=== PATIENT | male | born 1935 | race Caucasian/White ===

== ENCOUNTER 2020-03-09 16:19 | Inpatient (IN) | payer MEDICARE, MEDICAID ==
[~2020-03-09] VITALS: Ht 170.2 cm; Wt 95.7 kg
[2020-03-09 18:35] LABS: CHLORIDE 102 mEq/L (98-107)
[2020-03-09 18:40] LABS: HEMATOCRIT. 39.2 % (42.0-52.0); HEMOGLOBIN. 12.8 g/dL (14.0-18.0); MEAN CORPUSCULAR VOLUME 82.8 fL (80.0-94.0); MEAN PLATELET VOLUME 8.3 fl (7.4-10.4); PLATELET 113 x1000/uL (130-400); RED BLOOD CELL COUNT 4.74 mill/uL (4.7-6.1); RED CELL DISTRIBUTION WIDTH 18.5 % (11.6-14.6)
[2020-03-09 18:43] LABS: INR 1.3; PROTHROMBIN TIME 13.6 sec (9.6-11.0)
[2020-03-09 18:44] LABS: CLARITY URINE TURBID (CLEAR); COLOR URINE DK YELLOW (YELLOW); KETONES URINE TRACE (NEGATIVE); LEUKOCYTE ESTERASE URINE 3+ (NEGATIVE); NITRITE URINE NEGATIVE (NEGATIVE); OCCULT BLOOD URINE 3+ (NEGATIVE); PH URINE 5.5 (4.5-8.0); PROTEIN URINE 2+ (NEGATIVE); SPECIFIC GRAVITY URINE 1.028 (1.005-1.030)
[2020-03-09 19:07] LABS: PLATELET ESTIMATE DECREASED
[2020-03-09] MEDS ORDERED: PIPERACILLIN/TAZOBACTAM 3.375GM/50ML PREMIX IV NR (21:00)
[2020-03-09] MEDS ORDERED: ONDANSETRON HCL 4MG/2ML INJ IV PRN (23:00)
[2020-03-09] MEDS ORDERED: IPRATROPIUM/ALBUTEROL 0.5-3(2.5)MG/3ML NEB HHN PRN (23:00)
[2020-03-09] MEDS ORDERED: HYDROCODONE/ACETAMINOPHEN 5/325MG TABLET PO PRN (23:00)
[2020-03-09] MEDS ORDERED: ACETAMINOPHEN 325MG TABLET PO PRN (23:00)
[2020-03-09] MEDS ORDERED: VANCOMYCIN 1 G PREMIX 200 ML IV SCH (23:45)
[2020-03-09] MEDS: ACETAMINOPHEN 325MG TABLET PO PRN (23:58)
[2020-03-10 02:01] VITALS: BP 148/90
[2020-03-10] MEDS ORDERED: ASPI-1497 PO (02:15)
[2020-03-10] MEDS ORDERED: SITA1TAB6 PO (02:15)
[2020-03-10] MEDS ORDERED: DEXTROSE 50% WATER 50ML SYRINGE IV PRN (02:30)
[2020-03-10] MEDS: SODIUM CHLORIDE 0.45% 1,000 ML IV SCH ×2 (02:43→13:25)
[2020-03-10] MEDS: BLOOD SUGAR DIAGNOSTIC STRIP TEST SCH ×4 (03:11→21:00)
[2020-03-10 04:00] VITALS: BP 143/78
[2020-03-10 05:51] LABS: HEMATOCRIT. 38.4 % (42.0-52.0); HEMOGLOBIN. 12.4 g/dL (14.0-18.0); MEAN CORPUSCULAR HEMOGLOBIN 26.5 pg (28.0-32.0); MEAN CORPUSCULAR VOLUME 82.5 fL (80.0-94.0); MEAN PLATELET VOLUME 8.4 fl (7.4-10.4); PLATELET 111 x1000/uL (130-400); RED BLOOD CELL COUNT 4.66 mill/uL (4.7-6.1); RED CELL DISTRIBUTION WIDTH 18.6 % (11.6-14.6)
[2020-03-10 05:59] LABS: CHLORIDE 103 mEq/L (98-107)
[2020-03-10 06:10] LABS: LDL CHOLESTEROL 38 mg/dL (5-100)
[2020-03-10 06:12] LABS: CREATINE KINASE 128 IU/L (39-308); HDL CHOLESTEROL 31 mg/dL (40-59)
[2020-03-10 06:13] LABS: T4 FREE 1.19 ng/dL (0.76-1.46)
[2020-03-10] MEDS ORDERED: BLOOD SUGAR DIAGNOSTIC STRIP TEST SCH (06:45)
[2020-03-10] MEDS ORDERED: INSULIN LISPRO 100 UNITS/ML SUBCUT SCH (07:15)
[2020-03-10 08:00] VITALS: BP 160/74
[2020-03-10] MEDS: ENOXAPARIN 40MG/0.4ML SYR SUBCUT SCH (10:08)
[2020-03-10] MEDS: INSULIN LISPRO 100 UNITS/ML SUBCUT SCH ×2 (10:11→17:33)
[2020-03-10 12:00] VITALS: BP 140/68
[2020-03-10] MEDS: MEROPENEM 1,000 MG in SODIUM CHLORIDE 0.9% 100 ML IV SCH ×2 (15:40→22:20)
[2020-03-10 15:58] LABS: CREATINE KINASE 158 IU/L (39-308)
[2020-03-10 16:00] VITALS: BP 145/90
[2020-03-10 16:09] LABS: PLATELET ESTIMATE DECREASED
[2020-03-10] MEDS ORDERED: SODIUM CHLORIDE 0.9% 500 ML IV ONE (16:45)
[2020-03-10] MEDS ORDERED: GENTAMICIN 120MG PREMIX 100 ML IV NR (18:00)
[2020-03-10 20:00] VITALS: BP 110/68
[2020-03-10] MEDS: DILTIAZEM HCL 30MG TABLET PO SCH (22:20)
[2020-03-11] VITALS: BP 111/59
[2020-03-11] MEDS: SODIUM CHLORIDE 0.45% 1,000 ML IV SCH ×2 (02:03→16:21)
[2020-03-11 04:00] VITALS: BP 125/70
[2020-03-11] MEDS: DILTIAZEM HCL 30MG TABLET PO SCH ×3 (05:07→21:48)
[2020-03-11] MEDS: MEROPENEM 1,000 MG in SODIUM CHLORIDE 0.9% 100 ML IV SCH ×3 (05:07→21:42)
[2020-03-11] MEDS: BLOOD SUGAR DIAGNOSTIC STRIP TEST SCH ×4 (07:00→21:54)
[2020-03-11 08:00] VITALS: BP 137/86
[2020-03-11 08:42] LABS: HEMATOCRIT. 36.6 % (42.0-52.0); HEMOGLOBIN. 11.9 g/dL (14.0-18.0); MEAN CORPUSCULAR HEMOGLOBIN 26.8 pg (28.0-32.0); MEAN CORPUSCULAR VOLUME 82.2 fL (80.0-94.0); MEAN PLATELET VOLUME 8.1 fl (7.4-10.4); PLATELET 102 x1000/uL (130-400); RED BLOOD CELL COUNT 4.45 mill/uL (4.7-6.1); RED CELL DISTRIBUTION WIDTH 18.6 % (11.6-14.6)
[2020-03-11 08:52] LABS: CHLORIDE 106 mEq/L (98-107)
[2020-03-11] MEDS: ENOXAPARIN 40MG/0.4ML SYR SUBCUT SCH (08:58)
[2020-03-11] MEDS: INSULIN LISPRO 100 UNITS/ML SUBCUT SCH ×4 (08:58→21:54)
[2020-03-11 12:00] VITALS: BP 139/70
[2020-03-11 15:28] LABS: PLATELET ESTIMATE DECREASED
[2020-03-11 16:00] VITALS: BP 154/65
[2020-03-11] MEDS: ACETAMINOPHEN 325MG TABLET PO PRN (16:21)
[2020-03-11 20:00] VITALS: BP 136/64
[2020-03-12] VITALS: BP 144/68
[2020-03-12] MEDS ORDERED: VANCOMYCIN 1500MG in DEXTROSE 5% WATER 250ML IV NR (01:00)
[2020-03-12 04:00] VITALS: BP 105/83
[2020-03-12 06:17] LABS: CHLORIDE 102 mEq/L (98-107)
[2020-03-12 06:19] LABS: HEMATOCRIT. 33.2 % (42.0-52.0); HEMOGLOBIN. 11.1 g/dL (14.0-18.0); MEAN CORPUSCULAR HEMOGLOBIN 27.3 pg (28.0-32.0); MEAN CORPUSCULAR VOLUME 81.5 fL (80.0-94.0); MEAN PLATELET VOLUME 8.3 fl (7.4-10.4); PLATELET 96 x1000/uL (130-400); RED BLOOD CELL COUNT 4.07 mill/uL (4.7-6.1)
[2020-03-12] MEDS: INSULIN LISPRO 100 UNITS/ML SUBCUT SCH ×4 (06:23→22:22)
[2020-03-12] MEDS: BLOOD SUGAR DIAGNOSTIC STRIP TEST SCH ×4 (06:23→21:00)
[2020-03-12] MEDS: MEROPENEM 1,000 MG in SODIUM CHLORIDE 0.9% 100 ML IV SCH ×2 (06:28→13:11)
[2020-03-12] MEDS: DILTIAZEM HCL 30MG TABLET PO SCH ×3 (06:28→22:19)
[2020-03-12 08:00] VITALS: BP 144/71
[2020-03-12] MEDS: ACETAMINOPHEN 325MG TABLET PO PRN ×2 (08:33→22:15)
[2020-03-12] MEDS: ENOXAPARIN 40MG/0.4ML SYR SUBCUT SCH (08:33)
[2020-03-12] MEDS ORDERED: LIDOCAINE HCL 1% 20ML VIAL (Pyxis) INJ ONE (10:48)
[2020-03-12 12:00] VITALS: BP 150/78
[2020-03-12] MEDS: SODIUM CHLORIDE 0.45% 1,000 ML IV SCH (13:24)
[2020-03-12] MEDS ORDERED: AMIKACIN SULFATE 500 MG in SODIUM CHLORIDE 0.9% 100 ML IV NR (15:00)
[2020-03-12 16:00] VITALS: BP 144/77
[2020-03-12] MEDS: VANCOMYCIN 1 G PREMIX 200 ML IV SCH (17:11)
[2020-03-12] MEDS ORDERED: CEFAZOLIN 1000MG PREMIX 50 ML IV SCH (18:00)
[2020-03-12 18:52] LABS: PLATELET ESTIMATE DECREASED
[2020-03-12 20:00] VITALS: BP 165/89
[2020-03-12] MEDS: CEFAZOLIN 1000MG PREMIX 50 ML IV SCH (22:23)
[2020-03-13] VITALS: BP 139/70
[2020-03-13 04:00] VITALS: BP 145/77
[2020-03-13] MEDS: CEFAZOLIN 1000MG PREMIX 50 ML IV SCH ×3 (05:23→20:25)
[2020-03-13] MEDS: SODIUM CHLORIDE 0.45% 1,000 ML IV SCH ×3 (05:24→19:07)
[2020-03-13] MEDS: DILTIAZEM HCL 30MG TABLET PO SCH ×3 (05:24→21:46)
[2020-03-13] MEDS: BLOOD SUGAR DIAGNOSTIC STRIP TEST SCH ×4 (06:12→20:20)
[2020-03-13] MEDS: INSULIN LISPRO 100 UNITS/ML SUBCUT SCH ×4 (06:13→20:25)
[2020-03-13 08:00] VITALS: BP 139/69
[2020-03-13] MEDS: ENOXAPARIN 40MG/0.4ML SYR SUBCUT SCH (09:00)
[2020-03-13 12:00] VITALS: BP 152/77
[2020-03-13] MEDS: VANCOMYCIN 1 G PREMIX 200 ML IV SCH (12:01)
[2020-03-13 16:00] VITALS: BP 155/62
[2020-03-13 20:00] VITALS: BP 139/72
[2020-03-14] VITALS: BP 105/79
[2020-03-14 04:00] VITALS: BP 155/68
[2020-03-14] MEDS: CEFAZOLIN 1000MG PREMIX 50 ML IV SCH ×2 (04:33→12:40)
[2020-03-14] MEDS: SODIUM CHLORIDE 0.45% 1,000 ML IV SCH (04:33)
[2020-03-14] MEDS: BLOOD SUGAR DIAGNOSTIC STRIP TEST SCH ×2 (06:08→12:13)
[2020-03-14] MEDS: INSULIN LISPRO 100 UNITS/ML SUBCUT SCH ×2 (06:08→12:21)
[2020-03-14] MEDS: DILTIAZEM HCL 30MG TABLET PO SCH (06:09)
[2020-03-14] MEDS: VANCOMYCIN 1 G PREMIX 200 ML IV SCH (06:09)
[2020-03-14 07:46] LABS: HEMATOCRIT. 33.5 % (42.0-52.0); MEAN CORPUSCULAR HEMOGLOBIN 26.7 pg (28.0-32.0); MEAN CORPUSCULAR VOLUME 81.6 fL (80.0-94.0); MEAN PLATELET VOLUME 8.1 fl (7.4-10.4); PLATELET 119 x1000/uL (130-400); RED BLOOD CELL COUNT 4.11 mill/uL (4.7-6.1); RED CELL DISTRIBUTION WIDTH 18.5 % (11.6-14.6)
[2020-03-14 07:49] LABS: CHLORIDE 105 mEq/L (98-107)
[2020-03-14 08:00] VITALS: BP 162/89
[2020-03-14] MEDS: ENOXAPARIN 40MG/0.4ML SYR SUBCUT SCH (08:49)
[2020-03-14 12:00] VITALS: BP 163/81
[2020-03-14] MEDS ORDERED: SULF1TAB48 MT (13:04)
[2020-03-14 13:14] VITALS: BP 158/78
[2020-03-14] MEDS ORDERED: CLONIDINE 0.1MG TABLET PO SCH (13:15)
[2020-03-14 21:33] LABS: PLATELET ESTIMATE DECREASED
== END 2020-03-14 14:00 | disposition home or self-care (01) | DRG 872 ==
LOC: ER 16:19 → 5WST 21:13 → EDBEDREQTM 21:15 → EDBEDREQ 21:15 → ENRESERV 22:35
PROVIDERS: ADMIT Internal Medicine; ATTEND Internal Medicine
PROC: 02HV33Z Insertion of Infusion Device into Superior Vena Cava, Percutaneous Approach (ICD-10-PCS; principal; 2020-03-12)
PROC: B5181ZA Fluoroscopy of Superior Vena Cava using Low Osmolar Contrast, Guidance (ICD-10-PCS; 2020-03-12)
PROC: B548ZZA Ultrasonography of Superior Vena Cava, Guidance (ICD-10-PCS; 2020-03-12)
DX: A41.9 Sepsis, unspecified organism (principal); N39.0 Urinary tract infection, site not specified; E87.1 Hypo-osmolality and hyponatremia; E87.2 Acidosis; D69.6 Thrombocytopenia, unspecified; D64.9 Anemia, unspecified; E11.65 Type 2 diabetes mellitus with hyperglycemia; N40.0 Benign prostatic hyperplasia without lower urinary tract symptoms; I10 Essential (primary) hypertension; E66.9 Obesity, unspecified; E86.0 Dehydration; N20.0 Calculus of kidney; B96.89 Other specified bacterial agents as the cause of diseases classified elsewhere; N49.0 Inflammatory disorders of seminal vesicle; B95.8 Unspecified staphylococcus as the cause of diseases classified elsewhere; B96.20 Unspecified Escherichia coli [E. coli] as the cause of diseases classified elsewhere; Z20.828 Contact with and (suspected) exposure to other viral communicable diseases; Z68.32 Body mass index [BMI] 32.0-32.9, adult; Z90.79 Acquired absence of other genital organ(s); Z79.899 Other long term (current) drug therapy; R00.0 Tachycardia, unspecified
CPT/HCPCS: 36415; 36573; 71045; 74176; 76770; 76937; 80048; 80053; 80061; 81003; 82550; 82962; 83036; 83605; 84153; 84439; 84443; 84481; 84484; 85025; 87077; 87186; 87635; 93005; 93306; 96365; 99291; C1725; J0278; J0690; J1580; J1650; J1815; J2185; J3370; J3490; J7050; J7060; G0103